=== PATIENT | male | born 1985 | race Caucasian/White ===

== ENCOUNTER → 2023-08-14 | Outpatient (CLI) | payer OTHER ==
[2023-08-14 09:22] LABS: BASO # 0.04 K/mm3 (0.02-0.10); EOS # 0.07 K/mm3 (0.04-0.40); EOS % 1.4 % (0.0-4.0); HEMATOCRIT 46.5 % (42.0-52.0); HEMOGLOBIN 15.6 g/dL (13.5-18.0); LYMPH# 1.42 K/mm3 (1.50-4.00); MEAN CELL VOLUME 87 fl (78-100); MEAN CORPUSCULAR HEMOGLOBIN 29 pg (27-31); MEAN CORPUSCULAR HGB CONC 34 g/dL (33-37); MEAN PLATELET VOLUME 8.9 fl (7.4-10.4); MONO # 0.31 K/mm3 (0.20-0.80); NEU # 3.06 K/mm3 (1.40-6.50); PLATELET COUNT 222 K/mm3 (130-400); RED BLOOD COUNT 5.37 M/mm3 (4.20-5.60); RED CELL DISTRIBUTION WIDTH 11.9 % (11.5-14.5); WHITE BLOOD COUNT 4.9 K/mm3 (4.8-10.8)
[2023-08-14 10:00] LABS: ALBUMIN 4.5 g/dL (3.5-5.0)
[2023-08-14 10:01] LABS: CALCIUM 9.9 mg/dL (8.3-10.5)
[2023-08-14 10:02] LABS: TOTAL PROTEIN 7.1 g/dL (6.4-8.3)
[2023-08-14 10:04] LABS: TOTAL BILIRUBIN 0.5 mg/dL (0.2-1.2)
== END ==
LOC: RAD 09:02
PROVIDERS: Internal Medicine
DX: M25.562 Pain in left knee (principal)

== ENCOUNTER → 2023-10-03 | Outpatient (CLI) | payer OTHER | LOC: LAB 13:34 | DX: T78.3XXD Angioneurotic edema, subsequent encounter (principal); T78.05XD Anaphylactic reaction due to tree nuts and seeds, subsequent encounter ==